=== PATIENT | male | born 1935 | race Caucasian/White ===

== ENCOUNTER 2018-01-19 16:06 | Emergency (ER) | payer MEDICARE, OTHER ==
[2018-01-19] MEDS ORDERED: Sodium Chloride 0.9% 500 ML IV ONE (16:30)
[2018-01-19] MEDS ORDERED: Tetracaine HCl/PF 0.5% 4 ML Bottle EYELF ONE ×2 (16:31→16:37)
[2018-01-19] MEDS ORDERED: Fluorescein 1 MG Ophth Strip EYELF ONE (16:31)
--- NOTE | 2018-01-19 17:40 | EDM.PDOC ---
ED HPI GENERAL MEDICAL PROBLEM - General Chief Complaint: Eye Problems Stated Complaint: left eye pain Time Seen by Provider: 01/19/18 16:30 Source of Information: Reports: Patient History Limitations: Reports: No Limitations - History of Present Illness INITIAL COMMENTS - FREE TEXT/NARRATIVE: Patient comes in with complaints of left eye burning and pain. [place] and thinks he may have transferred from his hands to eye. He has no other complaints. He has tried to rinse the eye at home with little success. 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 Left Eye Pain Score (Numeric/FACES): 8 - Related Data Allergies Allergy/AdvReac Type Severity Reaction Status Date / Time hydrocodone Allergy Itching Verified 01/19/18 16:21 Past Medical History Cardiovascular History: Reports: Hypertension - Past Surgical History Cardiovascular Surgical History: Reports: Coronary Artery Bypass GI Surgical History: Reports: Cholecystectomy, Hernia, Inguinal Musculoskeletal Surgical History: Reports: Shoulder Surgery, Other (See Below) Other Musculoskeletal Surgeries/Procedures:: Bilateral trigger thumb surgery Social & Family History - Tobacco Use Smoking Status *Q: Former Smoker Used Tobacco, but Quit: Yes Month/Year Tobacco Last Used: 1979 - Alcohol Use Days Per Week of Alcohol Use: 7 Number of Drinks Per Day: 1 Total Drinks Per Week: 7 - Recreational Drug Use Recreational Drug Use: No ED ROS GENERAL - Review of Systems Review Of Systems: See Below Constitutional: Reports: No Symptoms HEENT: Reports: Eye Pain Respiratory: Reports: No Symptoms Cardiovascular: Reports: No Symptoms Endocrine: Reports: No Symptoms GI/Abdominal: Reports: No Symptoms : Reports: No Symptoms Musculoskeletal: Reports: No Symptoms Skin: Reports: No Symptoms Neurological: Reports: No Symptoms Psychiatric: Reports: No Symptoms Hematologic/Lymphatic: Reports: No Symptoms Immunologic: Reports: No Symptoms ED EXAM GENERAL W FULL EYE - Physical Exam Exam: See Below Exam Limited By: No Limitations General Appearance: Alert, WD/WN, No Apparent Distress Eye Exam: Bilateral Eye: EOMI, PERRL, Other (redness to left eye, no abrasion noted on exam) Visual Acuity (R) 20/: 40 Visual Acuity (L) 20/: 40 With Correction: Yes Conjunctiva & Sclera: Left: Normal Appearance Cornea Exam: Left: Normal Appearance, Examined with Flourescein Extraocular Movements: Left: Intact Pupils: Normal Accommodation Pupillary Size: Bilateral: 3 mm Pupillary Reaction: Bilateral: Brisk Anterior Chamber: Bilateral: Normal Appearance Ears: Normal External Exam, Normal Canal, Hearing Grossly Normal, Normal TMs Head: Atraumatic, Normocephalic Neck: Normal Inspection, Supple, Non-Tender, Full Range of Motion Respiratory/Chest: No Respiratory Distress, Lungs Clear, Normal Breath Sounds, No Accessory Muscle Use, Chest Non-Tender Cardiovascular: Normal Peripheral Pulses, Regular Rate, Rhythm, No Edema, No Gallop, No JVD, No Murmur, No Rub GI/Abdominal: Normal Bowel Sounds, Soft, Non-Tender, No Organomegaly, No Distention, No Abnormal Bruit, No Mass Extremities: Normal Inspection, Normal Range of Motion, Non-Tender, Normal Capillary Refill, No Pedal Edema Neurological: Alert, Oriented, CN II-XII Intact, Normal Cognition, Normal Gait, Normal Reflexes, No Motor/Sensory Deficits Psychiatric: Normal Affect, Normal Mood Skin Exam: Warm, Dry, Intact, Normal Color, No Rash Lymphatic: No Adenopathy Course - Vital Signs Last Recorded V/S: Last Vital Signs Temp 36.7 C 01/19/18 16:17 Pulse 68 01/19/18 16:17 Resp 16 01/19/18 16:17 BP 143/78 H 01/19/18 16:17 Pulse Ox 96 01/19/18 16:17 - Orders/Labs/Meds Meds: Medications Discontinued Medications Generic Name Dose Route Start Last Admin Trade Name Olayinkaq PRN Reason Stop Dose Admin Fluorescein Sodium 1 mg 01/19/18 16:31 01/19/18 17:20 Ful-Sarahi EYELF 01/19/18 16:32 1 mg ONETIME ONE Administration Sodium Chloride 500 mls @ 500 mls/hr 01/19/18 16:30 01/19/18 16:42 Normal Saline IV 01/19/18 17:29 500 mls/hr ONETIME ONE Administration Tetracaine HCl 1 ml 01/19/18 16:31 Tetracaine 0.5% Steri-Unit Annelise EYELF 01/19/18 16:32 ONETIME ONE Tetracaine HCl 1 ml 01/19/18 16:37 01/19/18 16:40 Tetracaine 0.5% Steri-Unit Annelise EYELF 01/19/18 16:38 2 drop ONETIME ONE Administration Departure - Departure Time of Disposition: 17:29 Disposition: Home, Self-Care 01 Condition: Good Clinical Impression: Chemical injury of eye - Discharge Information Instructions: Chemical Burn, Adult, [id number] Referrals: PCP,Not In Area [Primary Care Provider] - Additional Instructions: I did not see any abrasions or scratches in your left eye. Follow up with your eye doctor next week. This is likely a chemical reaction to getting pesticide in your eye. Continue to rinse as needed. If you need to come back to the ER please don't hesitate. Call with any questions or concerns. - Problem List & Annotations (1) Chemical injury of eye SNOMED Code(s): 310177834, 397078321 Code(s): T26.90XA - CORROSION OF UNSP EYE AND ADNEXA, PART UNSP, INIT ENCNTR Status: Acute Priority: Low Current Visit: Yes Qualifiers: Encounter type: initial encounter Laterality: left Qualified Code(s): T26.92XA - Corrosion of left eye and adnexa, part unspecified, initial encounter - Problem List Review Problem List Initiated/Reviewed/Updated: Yes - Assessment/Plan Assessment:: left eye chemical burn Plan: I did not see any abrasions or scratches in your left eye. Follow up with your eye doctor next week. This is likely a chemical reaction to getting pesticide in your eye. Continue to rinse as needed. If you need to come back to the ER please don't hesitate. Call with any questions or concerns.
== END 2018-01-19 17:36 | disposition home or self-care (01) ==
LOC: VM.ED 16:06
DX: T26.92XA Corrosion of left eye and adnexa, part unspecified, initial encounter (principal); I10 Essential (primary) hypertension; I25.810 Atherosclerosis of coronary artery bypass graft(s) without angina pectoris; Z87.891 Personal history of nicotine dependence; Z88.5 Allergy status to narcotic agent; Z77.098 Contact with and (suspected) exposure to other hazardous, chiefly nonmedicinal, chemicals
CPT/HCPCS: 99283; A9270; J7040